=== PATIENT | female | born 1995 | race Caucasian/White ===

== ENCOUNTER 2021-08-20 20:48 | Inpatient (IN) | payer OTHER ==
[2021-08-20 21:34] LABS: BASOPHIL 0.3 % (0-2); EOSINOPHIL 0.3 % (0-5); HGB 11.9 g/dl (12.5-16.0); LYMPHOCYTE 15.2 % (15-48); MCH 29.8 pg (25.0-31.0); MCHC 33.1 g/dL (32.0-36.0); MCV 90.2 fL (78.0-100.0); MONOCYTE 4.1 % (0-12); MPV 9.8 fL (6.0-9.5); NEUTROPHIL 79.7 % (41-80); NRBC 0; PLT 354 K/uL (150-400); RBC 3.99 M/uL (4.20-5.40); WBC 14.7 K/uL (4.0-10.5)
[2021-08-20 21:49] LABS: BUN/CREAT RATIO (CALC) 15.7 RATIO; CREATININE 0.7 mg/dL (0.51-0.95); POTASSIUM 3.9 mmol/L (3.5-5.1)
[2021-08-20 23:47] LABS: HCT 30.7 % (37.0-47.0); HGB 10.3 g/dL (12.5-16.0)
[2021-08-21 01:12] LABS: BILIRUBIN NEGATIVE (NEGATIVE); BLOOD 3+ Ery/uL (NEGATIVE); CLARITY CLEAR (CLEAR); COLOR YELLOW (YELLOW); GLUCOSE (U) NORMAL (NORMAL); LEUKOCYTES NEGATIVE Leu/uL (NEGATIVE); NITRITE NEGATIVE (NEGATIVE); PROTEIN NEGATIVE (NEGATIVE); SPECIFIC GRAVITY 1.015 (1.001-1.030); UROBILINOGEN 0.2 mg/dL (0.2-1.0)
[2021-08-21 01:15] LABS: BACTERIA 1+; URINARY RBC TNTC
[2021-08-21 01:16] LABS: GRANULAR CASTS TRACE
[2021-08-21] MEDS ORDERED: KETOROLAC TROME10 MG PO ×2 (02:37→02:40)
== END 2021-08-21 04:38 | disposition home or self-care (01) | DRG 770 ==
LOC: FER 20:48 → FOB 08-21 00:26
PROVIDERS: Internal Medicine; Nurse Practitioner Family; ADMIT Specialist
PROC: 10D17ZZ Extraction of Products of Conception, Retained, Via Natural or Artificial Opening (ICD-10-PCS; principal; 2021-08-21 02:00)
DX: O03.4 Incomplete spontaneous abortion without complication (principal); Z20.822 Contact with and (suspected) exposure to COVID-19
CPT/HCPCS: 36415; 76817; 80048; 81001; 84702; 85014; 85018; 85025; 86850; 86900; 86901; J0690; J1100; J2250; J2405; J2704; J2710; J3010; J7120; U0002